=== PATIENT | female | born 1990 | race Caucasian/White ===

== ENCOUNTER → 2016-06-12 | Outpatient (CLI) | payer BC | END | disposition home or self-care (01) | LOC: C.PAPS 11:48 | PROVIDERS: ATTEND Obstetrics & Gynecology | DX: Z01.419 Encounter for gynecological examination (general) (routine) without abnormal findings (principal) ==

== ENCOUNTER → 2016-06-12 | Outpatient (CLI) | payer BC ==
[2016-06-15 01:11] LABS: CHLAMYDIA TRACH RNA*** NOT DETECTED (NOT DETECTED); GC (NEIS GONORRHOEAE)RNA** NOT DETECTED (NOT DETECTED)
== END | disposition home or self-care (01) ==
LOC: C.LABSPEC 17:19
PROVIDERS: ATTEND Obstetrics & Gynecology
DX: Z01.419 Encounter for gynecological examination (general) (routine) without abnormal findings (principal)

== ENCOUNTER → 2017-06-19 | Outpatient (CLI) | payer BC | END | disposition home or self-care (01) | LOC: C.LABSPEC 16:07 | PROVIDERS: ATTEND Physician Assistant | DX: Z01.419 Encounter for gynecological examination (general) (routine) without abnormal findings (principal) ==

== ENCOUNTER 2022-03-14 07:55 | Inpatient (IN) ==
[2022-03-14] MEDS ORDERED: LIDOCAINE 1% LOCAL 20 ML VIAL INFIL PRN (09:36)
[2022-03-14] MEDS ORDERED: OXYTOCIN 30 UNITS/500 ML BAG IV PRN (09:36)
[2022-03-14] MEDS ORDERED: LACTATED RINGER'S 1,000 ML IV PRN (09:36)
[2022-03-14] MEDS: miSOPROStoL 200 MCG TAB PV SCH ×2 (10:00→16:35)
[2022-03-14 10:03] LABS: Hematocrit (blood only) 36.3 % (34.1-44.9); Hemoglobin 12.2 g/dl (12.0-16.0); Mean Corpuscular Hemoglobin 30.4 pg (25.0-34.0); Mean Corpuscular Hgb Conc 33.6 g/dL (32.0-36.0); Mean Corpuscular Volume 90.5 fL (80.0-100.0); Mean Platelet Volume 9.6 fL (9.4-12.3); Platelet Count 228 K/uL (130-400); RDW Coefficient of Variation 13.7 % (11.5-14.5); RDW Standard Deviation 45.6 fL (36.4-46.3); Red Blood Count 4.01 M/uL (3.93-5.22); White Blood Count 7.79 K/ul (4.8-10.8)
[2022-03-14] MEDS ORDERED: BUTORPHANOL TARTRATE 1 MG/ML VIAL IV PRN (10:05)
--- NOTE | 2022-03-14 10:10 | History & Physical Report ---
Date of Service March 14, 2022 Assessment & Plan (1) Cystic hygroma of fetus: (2) Hydrops fetalis in second trimester: (3) demise: Plan: 11-year-old at 21 weeks and 2 days of gestation presenting today for induction of labor for demise due to/cystic hygroma and hydrops fetalis Vital signs stable afebrile, No signs or symptoms of labor, Plan to admit, monitor, intravaginal Cytotec for induction of labor, placenta for genetic testing All questions were answered. Admission and Anticipated Discharge Date Admission Date: March 14, 2022 History of Present Illness Primary Care Provider: NO PCP Patient is a 31-year-old G1, P0 at 21 weeks and 2 days of gestation by her LMP and first trimester ultrasound. Her was complicated by cystic hygroma and hydrops and was found to have demise yesterday at the office. She was scheduled for induction of labor for that. Patient has no complaints other than being sad. She denies abdominal pain, contractions, cramping, vaginal bleeding, spotting, leakage of fluid. He she has never felt movements. She had ultrasound a week ago by MFM at [facility] and the fetus was measuring small for gestational age. She had amniocentesis sample was not enough for genetic karyotyping and plan was to send placenta for cytogenetics. Denies any medical problems or surgeries. Allergies Allergy/AdvReac Type Severity Reaction Status Date / Time carrot Allergy Hives Verified 03/14/22 09:23 ragweed pollen AdvReac Watery Eye Verified 03/14/22 09:23 Patient History Medical History No known health problems Social History Smoking Status: Never smoker Hx Alcohol Use: No Hx Substance Use: No Preferred Language: Macedonian Communication Ability: Effective Loom Technician Required: No Beliefs That Will Affect Care: None marital status: Current Living Situation: Spouse Current Living Situation Comment: , 2 cats, 2 rabbits Feels Safe at Home: Yes Safety Concerns: Feels Safe At This Time Assistive Devices: 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
[2022-03-14] MEDS ORDERED: FLUCONAZOLE 50 MG TAB PO ONE (10:30)
--- NOTE | 2022-03-14 15:11 | Obstetrical Progress Note ---
Date of Service March 14, 2022 Assessment & Plan Admission and Anticipated Discharge Date Admission Date: March 14, 2022 Subjective Patient is due for 2nd dose of Cytotec She feels well no complaints, No pain but some cramping She is hungry and wants to eat before the next dose Results & Data ([facility]) Vital Signs (Past 12 Hours) Vital Signs Temp Pulse Resp BP 03/14/22 12:00 37.2 C 61 18 124/75 03/14/22 08:56 37.2 C 82 18 114/64 03/14/22 11:58 61 124/75 03/14/22 08:54 82 114/64
--- NOTE | 2022-03-14 17:21 | Obstetrical Progress Note ---
Date of Service March 14, 2022 Assessment & Plan Admission and Anticipated Discharge Date Admission Date: March 14, 2022 Subjective Late entry from 16:30 Patient ate dinner and is ready for 2nd dose of Cytotec No complaints VE; unchanged, 400 mcg of Cytotec was placed in posterior fornix Discussed pain management All questions were answered. Continue to monitor closely Results & Data ([facility]) Vital Signs (Past 12 Hours) Vital Signs Temp Pulse Resp BP 03/14/22 16:00 37.3 C 16 03/14/22 12:00 37.2 C 61 18 124/75 03/14/22 08:56 37.2 C 82 18 114/64 03/14/22 16:10 72 109/57 L 03/14/22 11:58 61 124/75 03/14/22 08:54 82 114/64
[2022-03-14 20:37] LABS: Basophils # (auto) 0.02 K/uL (0-0.2); Basophils % (auto) 0.1 %; Eosinophils # (auto) 0.01 K/uL (0-0.50); Eosinophils % (auto) 0.1 %; Hematocrit (blood only) 40.2 % (34.1-44.9); Immature Granulocytes # (auto) 0.07 K/uL (0.00-0.02); Immature Granulocytes % (auto) 0.4 %; Lymphocytes # (auto) 2.19 K/uL (1.2-3.4); Lymphocytes % (auto) 13.7 %; Mean Corpuscular Hemoglobin 30.5 pg (25.0-34.0); Mean Corpuscular Hgb Conc 34.8 g/dL (32.0-36.0); Mean Corpuscular Volume 87.6 fL (80.0-100.0); Mean Platelet Volume 9.8 fL (9.4-12.3); Monocytes # (auto) 0.61 K/uL (0.24-0.82); Monocytes % (auto) 3.8 %; Neutrophils # (auto) 13.08 K/uL (1.4-6.5); Neutrophils % (auto) 81.9 %; Platelet Count 270 K/uL (130-400); RDW Coefficient of Variation 13.3 % (11.5-14.5); RDW Standard Deviation 42.7 fL (36.4-46.3); Red Blood Count 4.59 M/uL (3.93-5.22); White Blood Count 15.98 K/ul (4.8-10.8)
[2022-03-14 20:50] LABS: Appearance Urine Clear (Clear); Bilirubin Urine Negative (Negative); Blood Urine Negative (Negative); Color Urine Yellow; Glucose Urine UA Negative (Negative); Ketones Urine Negative (Negative); Leukocyte Esterase Urine Negative (Negative); Nitrite Urine Negative (Negative); Protein Urine Negative (Negative); Specific Gravity Urine 1.019 (1.000-1.030); Urobilinogen Urine Negative (Negative)
[2022-03-14 20:59] LABS: Albumin Globulin Ratio 1.2 (0.9-2); Albumin Level 3.9 gm/dl (3.4-5.0); BUN Creatinine Ratio 17.1 (10-20); Bilirubin,Total 0.5 mg/dl (0.2-1.0); Calcium 8.9 mg/dl (8.5-10.1); Creatinine Clr Calc Pharmacy 93.4 ml/min; Est GFR (African American) 135.7 ml/min; Est GFR (Non-African American) 117.1 ml/min; Globulin 3.3 gm/dl (2.5-4.0); Potassium 3.6 mmol/L (3.5-5.1); Total Protein 7.2 gm/dl (6.0-8.3)
[2022-03-14] MEDS ORDERED: miSOPROStoL 200 MCG TAB PO SCH (21:00)
[2022-03-14] MEDS ORDERED: ACETAMINOPHEN 325 MG TAB PO PRN (21:51)
[2022-03-14] MEDS ORDERED: ACETAMINOPHEN 10MG/ML Custom 1,000 MG in EMPTY BAG 0 ML IV PRN (21:51)
[2022-03-14] MEDS ORDERED: ONDANSETRON INJ 2 MG/ML 2 ML VIAL IV PRN (22:04)
[2022-03-14] MEDS ORDERED: LACTATED RINGER'S 500 ML IV ONE (22:05)
--- NOTE | 2022-03-14 22:11 | Obstetrical Progress Note ---
Date of Service March 14, 2022 Assessment & Plan Admission and Anticipated Discharge Date Admission Date: March 14, 2022 Subjective Patient is reevaluated. She had fever, elevated temperatures over 38 celcius x 3. Third dose of Cytotec was intrabronchial 600 mcg which was given at 9 PM. She denies sore throat, runny nose, cough or respiratory infection symptoms. She denies abdominal pain except cramping in lower abdomen/pelvis. She denies vaginal bleeding, spotting, leakage of fluid. She denies headache, change in her vision, nausea or vomiting, leg pain. Vital Signs Temp Pulse Resp BP Pulse Ox 03/14/22 19:30 38.4 C H 18 03/14/22 19:45 38.4 C H 16 03/14/22 20:15 37.6 C H 98 03/14/22 16:00 37.3 C 16 03/14/22 12:00 37.2 C 61 18 124/75 03/14/22 22:08 81 109/58 L 03/14/22 19:31 72 110/51 L 03/14/22 16:10 72 109/57 L 03/14/22 11:58 61 124/75 Lab Results 03/14/22 03/14/22 03/14/22 Range/Units 09:05 09:53 09:53 WBC 7.79 (4.8-10.8) K/ul RBC 4.01 (3.93-5.22) M/uL Hgb 12.2 (12.0-16.0) g/dl Hct 36.3 (34.1-44.9) % MCV 90.5 (80.0-100.0) fL MCH 30.4 (25.0-34.0) pg MCHC 33.6 (32.0-36.0) g/dL RDW Std Deviation 45.6 (36.4-46.3) fL RDW Coeff of Kait 13.7 (11.5-14.5) % Plt Count 228 (130-400) K/uL MPV 9.6 (9.4-12.3) fL Immature Gran % (Auto) % Neut % (Auto) % Lymph % (Auto) % [place] % (Auto) % Eos % (Auto) % Baso % (Auto) % Neut # (Auto) (1.4-6.5) K/uL Lymph # (Auto) (1.2-3.4) K/uL [place] # (Auto) (0.24-0.82) K/uL Eos # (Auto) (0-0.50) K/uL Baso # (Auto) (0-0.2) K/uL Immature Gran # (Auto) (0.00-0.02) K/uL Sodium (136-145) mmol/L Potassium (3.5-5.1) mmol/L Chloride (98-107) mmol/L Carbon Dioxide (21-32) mmol/L Anion Gap (3-11) BUN (6-23) mg/dl Creatinine (0.6-1.2) mg/dl Est Cr Clr Drug Dosing ml/min Est GFR ( Amer) ml/min Est GFR (Non-Af Amer) ml/min BUN/Creatinine Ratio (10-20) Glucose (70-99(Fasting)) mg/dl Lactate (0.4-2.0) mmol/L Calcium (8.5-10.1) mg/dl Total Bilirubin (0.2-1.0) mg/dl AST (13-39) U/L ALT (7-52) U/L Alkaline Phosphatase (34-104) U/L Total Protein (6.0-8.3) gm/dl Albumin (3.4-5.0) gm/dl Globulin (2.5-4.0) gm/dl Albumin/Globulin Ratio (0.9-2) Urine Color Urine Appearance (Clear) Urine pH (4.5-7.5) Ur Specific [place] (1.000-1.030) Urine Protein (Negative) Urine Glucose (UA) (Negative) Urine Ketones (Negative) Urine Blood (Negative) Urine Nitrite (Negative) Urine Bilirubin (Negative) Urine Urobilinogen (Negative) Ur Leukocyte Esterase (Negative) SARS-CoV-2, RNA, NAAT NEGATIVE (NEGATIVE) Blood Type O Positive Antibody Screen NEGATIVE 03/14/22 03/14/22 03/14/22 Range/Units 20:19 20:23 20:23 WBC 15.98 H (4.8-10.8) K/ul RBC 4.59 (3.93-5.22) M/uL Hgb 14.0 (12.0-16.0) g/dl Hct 40.2 (34.1-44.9) % MCV 87.6 (80.0-100.0) fL MCH 30.5 (25.0-34.0) pg MCHC 34.8 (32.0-36.0) g/dL RDW Std Deviation 42.7 (36.4-46.3) fL RDW Coeff of Kait 13.3 (11.5-14.5) % Plt Count 270 (130-400) K/uL MPV 9.8 (9.4-12.3) fL Immature Gran % (Auto) 0.4 % Neut % (Auto) 81.9 % Lymph % (Auto) 13.7 % [place] % (Auto) 3.8 % Eos % (Auto) 0.1 % Baso % (Auto) 0.1 % Neut # (Auto) 13.08 H (1.4-6.5) K/uL Lymph # (Auto) 2.19 (1.2-3.4) K/uL [place] # (Auto) 0.61 (0.24-0.82) K/uL Eos # (Auto) 0.01 (0-0.50) K/uL Baso # (Auto) 0.02 (0-0.2) K/uL Immature Gran # (Auto) 0.07 H (0.00-0.02) K/uL Sodium 131 L (136-145) mmol/L Potassium 3.6 (3.5-5.1) mmol/L Chloride 103 (98-107) mmol/L Carbon Dioxide 19 L (21-32) mmol/L Anion Gap 9 (3-11) BUN 12 (6-23) mg/dl Creatinine 0.70 (0.6-1.2) mg/dl Est Cr Clr Drug Dosing 93.4 ml/min Est GFR ( Amer) 135.7 ml/min Est GFR (Non-Af Amer) 117.1 ml/min BUN/Creatinine Ratio 17.1 (10-20) Glucose 140 H (70-99(Fasting)) mg/dl Lactate (0.4-2.0) mmol/L Calcium 8.9 (8.5-10.1) mg/dl Total Bilirubin 0.5 (0.2-1.0) mg/dl AST 18 (13-39) U/L ALT 11 (7-52) U/L Alkaline Phosphatase 57 (34-104) U/L Total Protein 7.2 (6.0-8.3) gm/dl Albumin 3.9 (3.4-5.0) gm/dl Globulin 3.3 (2.5-4.0) gm/dl Albumin/Globulin Ratio 1.2 (0.9-2) Urine Color Yellow Urine Appearance Clear (Clear) Urine pH 5.0 (4.5-7.5) Ur Specific [place] 1.019 (1.000-1.030) Urine Protein Negative (Negative) Urine Glucose (UA) Negative (Negative) Urine Ketones Negative (Negative) Urine Blood Negative (Negative) Urine Nitrite Negative (Negative) Urine Bilirubin Negative (Negative) Urine Urobilinogen Negative (Negative) Ur Leukocyte Esterase Negative (Negative) SARS-CoV-2, RNA, NAAT (NEGATIVE) Blood Type Antibody Screen 03/14/22 Range/Units 20:23 WBC (4.8-10.8) K/ul RBC (3.93-5.22) M/uL Hgb (12.0-16.0) g/dl Hct (34.1-44.9) % MCV (80.0-100.0) fL MCH (25.0-34.0) pg MCHC (32.0-36.0) g/dL RDW Std Deviation (36.4-46.3) fL RDW Coeff of Kait (11.5-14.5) % Plt Count (130-400) K/uL MPV (9.4-12.3) fL Immature Gran % (Auto) % Neut % (Auto) % Lymph % (Auto) % [place] % (Auto) % Eos % (Auto) % Baso % (Auto) % Neut # (Auto) (1.4-6.5) K/uL Lymph # (Auto) (1.2-3.4) K/uL [place] # (Auto) (0.24-0.82) K/uL Eos # (Auto) (0-0.50) K/uL Baso # (Auto) (0-0.2) K/uL Immature Gran # (Auto) (0.00-0.02) K/uL Sodium (136-145) mmol/L Potassium (3.5-5.1) mmol/L Chloride (98-107) mmol/L Carbon Dioxide (21-32) mmol/L Anion Gap (3-11) BUN (6-23) mg/dl Creatinine (0.6-1.2) mg/dl Est Cr Clr Drug Dosing ml/min Est GFR ( Amer) ml/min Est GFR (Non-Af Amer) ml/min BUN/Creatinine Ratio (10-20) Glucose (70-99(Fasting)) mg/dl Lactate 1.9 (0.4-2.0) mmol/L Calcium (8.5-10.1) mg/dl Total Bilirubin (0.2-1.0) mg/dl AST (13-39) U/L ALT (7-52) U/L Alkaline Phosphatase (34-104) U/L Total Protein (6.0-8.3) gm/dl Albumin (3.4-5.0) gm/dl Globulin (2.5-4.0) gm/dl Albumin/Globulin Ratio (0.9-2) Urine Color Urine Appearance (Clear) Urine pH (4.5-7.5) Ur Specific [place] (1.000-1.030) Urine Protein (Negative) Urine Glucose (UA) (Negative) Urine Ketones (Negative) Urine Blood (Negative) Urine Nitrite (Negative) Urine Bilirubin (Negative) Urine Urobilinogen (Negative) Ur Leukocyte Esterase (Negative) SARS-CoV-2, RNA, NAAT (NEGATIVE) Blood Type Antibody Screen General: Very pleasant female, is alert oriented x3, THIN CVS: S1S2 RRR Lungs; CTAB Abd: soft, uterus tender on palpation Ext; NT, no edema Ap; induction of labor for hydrops, cystic hygroma, IUFD, status post 3 doses of Cytotec, Now recurrent, most likely from Cytotec, Given elevated white count and abdominal tenderness, we will start IV antibiotics empirically, Start IV fluids, p.o. or IV Tylenol as needed, Continue to monitor closely, All questions were answered. Results & Data ([facility]) Vital Signs (Past 12 Hours) Vital Signs Temp Pulse Resp BP Pulse Ox 03/14/22 19:30 38.4 C H 18 03/14/22 19:45 38.4 C H 16 03/14/22 20:15 37.6 C H 98 03/14/22 16:00 37.3 C 16 03/14/22 12:00 37.2 C 61 18 124/75 03/14/22 19:31 72 110/51 L 03/14/22 16:10 72 109/57 L 03/14/22 11:58 61 124/75
[2022-03-14] MEDS: ceFAZolin 1000MG 1,000 MG/7.5 ML SYR IV SCH (22:58)
[2022-03-14] MEDS ORDERED: ACETAMINOPHEN 1000 MG/100 ML IV IV PRN (23:15)
[2022-03-15] MEDS: CLINDAMYCIN/D5W 600 MG/50 ML BAG IV SCH ×3 (01:29→17:13)
[2022-03-15] MEDS ORDERED: oxyCODONE/ACETAMINOPHEN 5mg/325mg TAB PO PRN (01:59)
[2022-03-15] MEDS ORDERED: BENZOCAINE 20% AER SPR 82.5 GM CAN EXT PRN (01:59)
[2022-03-15] MEDS ORDERED: DIPHTHERIA/TETANUS/PERTUSSIS 0.5 ML SYR/VIAL IM ONE (01:59)
[2022-03-15] MEDS ORDERED: IBUPROFEN 600 MG TAB PO PRN (01:59)
[2022-03-15] MEDS ORDERED: OXYTOCIN 30 UNITS/500 ML BAG IV PRN (01:59)
[2022-03-15] MEDS ORDERED: HYDROCORTISONE ACETATE 25 MG SUPP PR PRN (01:59)
[2022-03-15] MEDS ORDERED: ACETAMINOPHEN 325 MG TAB PO PRN (01:59)
[2022-03-15] MEDS ORDERED: METHYLERGONOVINE MALEATE 0.2 MG/ML AMP IM ONE (01:59)
[2022-03-15] MEDS ORDERED: MEASLES, MUMPS & RUBELLA VIRUS VIAL SQ ONE (01:59)
[2022-03-15] MEDS ORDERED: miSOPROStoL 200 MCG TAB PO SCH (02:00)
--- NOTE | 2022-03-15 02:16 | Delivery Summary ---
Vaginal Delivery Summary Date of Service March 15, 2022 Vaginal Delivery Summary Patient felt a gush of fluid leaking and then followed by pressure and desired to push. One of the lower extremity was in the introitus. She pushed with cramping sensations and delivered the fetus feet first and body and then head intact. The cord was clamped and cut. The fetus has diffuse edema on extremities, abdomen and head/ neck. Wrapped by nursing team and given to the mother The placenta was found to be in vagina and delivered by patient pushing. It appeared to be intact and complete. VE was done and felt a piece of tissue in lower uterine segment and that was retrieved with ring forceps under US guidance. The uterine cavity was empty by repeat US. EBL was 250 ml. Vagina and perineum were intact. IV oxytocin infusion was started and then IM Methergine was given. The mom tolerated the procedure well. She declined pain medication, has not received IV pain medication nor epidural. Sponge and instrument count was correct x2. Placenta was sent to the lab as instructed by pulmonary specialist and will be sent out for cytogenetic testing. No complications happened and I was present during all procedure. Due to persistent fever patient was started on IV cefazolin and clindamycin and will be continued for 24 hours.
[2022-03-15] MEDS: METHYLERGONOVINE MALEATE 0.2 MG TAB PO SCH ×5 (03:57→19:54)
[2022-03-15] MEDS: ceFAZolin 1000MG 1,000 MG/7.5 ML SYR IV SCH ×3 (06:02→22:18)
[2022-03-15] MEDS: FERROUS SULFATE 325 MG TAB PO SCH (08:20)
[2022-03-15] MEDS: PRENATAL VITAMIN 1 TAB PO SCH (08:20)
[2022-03-15] MEDS: DOCUSATE SODIUM 100 MG CAP PO SCH ×2 (08:20→19:54)
[2022-03-15] MEDS ORDERED: NON-FORMULARY MEDICATION (Prenat.Vits,Cal,Min-Iron-Folic Tablet) PO SCH (09:00)
[2022-03-15] MEDS ORDERED: FLUARIX QUADRIVALENT 0.5 ML SYR IM ONE (12:00)
[2022-03-15 12:15] LABS: Basophils # (auto) 0.03 K/uL (0-0.2); Basophils % (auto) 0.2 %; Eosinophils # (auto) 0.06 K/uL (0-0.50); Eosinophils % (auto) 0.4 %; Hematocrit (blood only) 36.2 % (34.1-44.9); Hemoglobin 12.4 g/dl (12.0-16.0); Immature Granulocytes # (auto) 0.08 K/uL (0.00-0.02); Immature Granulocytes % (auto) 0.5 %; Lymphocytes # (auto) 3.21 K/uL (1.2-3.4); Lymphocytes % (auto) 21.5 %; Mean Corpuscular Hemoglobin 29.9 pg (25.0-34.0); Mean Corpuscular Hgb Conc 34.3 g/dL (32.0-36.0); Mean Corpuscular Volume 87.2 fL (80.0-100.0); Mean Platelet Volume 9.8 fL (9.4-12.3); Monocytes # (auto) 1.27 K/uL (0.24-0.82); Monocytes % (auto) 8.5 %; Neutrophils # (auto) 10.31 K/uL (1.4-6.5); Neutrophils % (auto) 68.9 %; Platelet Count 222 K/uL (130-400); RDW Coefficient of Variation 13.5 % (11.5-14.5); Red Blood Count 4.15 M/uL (3.93-5.22); White Blood Count 14.96 K/ul (4.8-10.8)
[2022-03-16] MEDS: CLINDAMYCIN/D5W 600 MG/50 ML BAG IV SCH (01:18)
[2022-03-16] MEDS: DOCUSATE SODIUM 100 MG CAP PO SCH (09:14)
[2022-03-16] MEDS: FERROUS SULFATE 325 MG TAB PO SCH (09:14)
[2022-03-16] MEDS: PRENATAL VITAMIN 1 TAB PO SCH (09:14)
--- NOTE | 2022-03-16 10:44 | Obstetrical Progress Note ---
Date of Service March 16, 2022 Subjective Ambulation: ambulating normally Voiding: no voiding problems Passing Gas:: Yes Diet Tolerance:: regular diet Current Pain Level(1-10): 0 doing well, teary Physical Exam Constitutional WD/WN, vitals as above Neurologic patellar DTR's 2+ bilat, sensation intact Results & Data ([facility] [place]) Vital Signs (Past 12 Hours) Vital Signs Temp Pulse Resp BP 03/16/22 09:11 36.9 C 20 03/16/22 01:27 36.5 C 18 03/16/22 09:11 73 98/53 L 03/16/22 01:21 62 110/56 L Laboratory Results 03/14/22 03/14/22 03/14/22 09:05 09:53 09:53 WBC 7.79 RBC 4.01 Hgb 12.2 Hct 36.3 MCV 90.5 MCH 30.4 MCHC 33.6 RDW Std Deviation 45.6 RDW Coeff of Kait 13.7 Plt Count 228 MPV 9.6 Immature Gran % (Auto) Neut % (Auto) Lymph % (Auto) [place] % (Auto) Eos % (Auto) Baso % (Auto) Neut # (Auto) Lymph # (Auto) [place] # (Auto) Eos # (Auto) Baso # (Auto) Immature Gran # (Auto) Sodium Potassium Chloride Carbon Dioxide Anion Gap BUN Creatinine Est Cr Clr Drug Dosing Est GFR ( Amer) Est GFR (Non-Af Amer) BUN/Creatinine Ratio Glucose Lactate Calcium Total Bilirubin AST ALT Alkaline Phosphatase Total Protein Albumin Globulin Albumin/Globulin Ratio Urine Color Urine Appearance Urine pH Ur Specific [place] Urine Protein Urine Glucose (UA) Urine Ketones Urine Blood Urine Nitrite Urine Bilirubin Urine Urobilinogen Ur Leukocyte Esterase SARS-CoV-2, RNA, NAAT NEGATIVE Blood Type O Positive Antibody Screen NEGATIVE 03/14/22 03/14/22 03/14/22 20:19 20:23 20:23 WBC 15.98 H RBC 4.59 Hgb 14.0 Hct 40.2 MCV 87.6 MCH 30.5 MCHC 34.8 RDW Std Deviation 42.7 RDW Coeff of Kait 13.3 Plt Count 270 MPV 9.8 Immature Gran % (Auto) 0.4 Neut % (Auto) 81.9 Lymph % (Auto) 13.7 [place] % (Auto) 3.8 Eos % (Auto) 0.1 Baso % (Auto) 0.1 Neut # (Auto) 13.08 H Lymph # (Auto) 2.19 [place] # (Auto) 0.61 Eos # (Auto) 0.01 Baso # (Auto) 0.02 Immature Gran # (Auto) 0.07 H Sodium 131 L Potassium 3.6 Chloride 103 Carbon Dioxide 19 L Anion Gap 9 BUN 12 Creatinine 0.70 Est Cr Clr Drug Dosing 93.4 Est GFR ( Amer) 135.7 Est GFR (Non-Af Amer) 117.1 BUN/Creatinine Ratio 17.1 Glucose 140 H Lactate Calcium 8.9 Total Bilirubin 0.5 AST 18 ALT 11 Alkaline Phosphatase 57 Total Protein 7.2 Albumin 3.9 Globulin 3.3 Albumin/Globulin Ratio 1.2 Urine Color Yellow Urine Appearance Clear Urine pH 5.0 Ur Specific [place] 1.019 Urine Protein Negative Urine Glucose (UA) Negative Urine Ketones Negative Urine Blood Negative Urine Nitrite Negative Urine Bilirubin Negative Urine Urobilinogen Negative Ur Leukocyte Esterase Negative SARS-CoV-2, RNA, NAAT Blood Type Antibody Screen 03/14/22 03/15/22 20:23 11:47 WBC 14.96 H RBC 4.15 Hgb 12.4 Hct 36.2 MCV 87.2 MCH 29.9 MCHC 34.3 RDW Std Deviation 43.0 RDW Coeff of Kait 13.5 Plt Count 222 MPV 9.8 Immature Gran % (Auto) 0.5 Neut % (Auto) 68.9 Lymph % (Auto) 21.5 [place] % (Auto) 8.5 Eos % (Auto) 0.4 Baso % (Auto) 0.2 Neut # (Auto) 10.31 H Lymph # (Auto) 3.21 [place] # (Auto) 1.27 H Eos # (Auto) 0.06 Baso # (Auto) 0.03 Immature Gran # (Auto) 0.08 H Sodium Potassium Chloride Carbon Dioxide Anion Gap BUN Creatinine Est Cr Clr Drug Dosing Est GFR ( Amer) Est GFR (Non-Af Amer) BUN/Creatinine Ratio Glucose Lactate 1.9 Calcium Total Bilirubin AST ALT Alkaline Phosphatase Total Protein Albumin Globulin Albumin/Globulin Ratio Urine Color Urine Appearance Urine pH Ur Specific [place] Urine Protein Urine Glucose (UA) Urine Ketones Urine Blood Urine Nitrite Urine Bilirubin Urine Urobilinogen Ur Leukocyte Esterase SARS-CoV-2, RNA, NAAT Blood Type Antibody Screen
[2022-03-16] MEDS ORDERED: bisacodyL 5 MG TABEC PO SCH (20:00)
[2022-03-17] MEDS ORDERED: bisacodyL 10 MG SUPP PR PRN (22:00)
== END 2022-03-16 15:15 | disposition home or self-care (01) | DRG 807 ==
LOC: 4S1 07:55